=== PATIENT | male | born 1950 | race Caucasian/White ===

== ENCOUNTER 2016-11-25 16:27 | Emergency (ER) | payer OTHER, MEDICARE ==
[2016-11-25 17:48] VITALS: BP 146/72
--- NOTE | 2016-11-25 18:37 | UC ---
Throat Pain/Nasal Miguelangel HPI - HPI Summary HPI Summary: FIVE DAYS OF COUGH SORE THROAT POST NASAL DRIP LOW GRADE FEVER 99.4F - History of Current Complaint Chief Complaint: UCRespiratory Stated Complaint: ST, COUGH Time Seen by Provider: 11/25/16 17:30 Hx Obtained From: Patient Onset/Duration: Gradual Onset, Lasting Weeks, Still Present Severity: Mild Pain Intensity: 0 Pain Scale Used: 0-10 Numeric Cough: Nonproductive Associated Signs & Symptoms: Positive: Sinus Discomfort, Nasal Discharge, Fever - Epiglottits Risk Factors Epiglottis Risk Factors: Negative - Allergies/Home Medications Allergies/Adverse Reactions: Allergies Allergy/AdvReac Type Severity Reaction Status Date / Time No Known Allergies Allergy Verified 11/25/16 17:31 PMH/Surg Hx/FS Hx/Imm Hx Previously Healthy: Yes Endocrine History Of: Denies: Diabetes - BOARDERLINE TYPE 2, Thyroid Disease Cardiovascular History Of: Denies: Cardiac Disorders, Hypertension, Pacemaker/ICD Respiratory History Of: Denies: COPD, Asthma GI/ History Of: Denies: Ulcer - Surgical History Surgical History: Yes Surgery Procedure, Year, and Place: Tonsilectomy. 2004 LEFT TKR and 2007-RIGHT TKR. bilateral carpal tunnel. trigger finger release bilateral - Family History Known Family History: Positive: Respiratory Disease - Social History Occupation: Retired Lives: With Family Alcohol Use: None Substance Use Type: None Smoking Status (MU): Former Smoker Type: Cigarettes Length of Time of Smoking/Using Tobacco: 20 years Have You Smoked in the Last Year: No When Did the Patient Quit Smoking/Using Tobacco: 1994 - Immunization History Most Recent Influenza Vaccination: 2012 Most Recent Tetanus Shot: 2006 Most Recent Pneumonia Vaccination: never Review of Systems Constitutional: Negative Skin: Negative Eyes: Negative ENT: Nasal Discharge Respiratory: Cough Cardiovascular: Negative Gastrointestinal: Negative Genitourinary: Negative Motor: Negative Neurovascular: Negative Musculoskeletal: Negative Neurological: Negative Psychological: Negative All Other Systems Reviewed And Are Negative: Yes Physical Exam Triage Information Reviewed: Yes Appearance: Well-Appearing, No Pain Distress, Well-Nourished Vital Signs: Initial Vital Signs Temp 99.4 F 11/25/16 17:46 Pulse 68 11/25/16 17:46 Resp 12 11/25/16 17:46 BP 146/72 11/25/16 17:46 Pulse Ox 96 02/15/17 17:46 Vital Signs Reviewed: Yes Eye Exam: Normal Eyes: Positive: Conjunctiva Clear ENT: Positive: Hearing grossly normal, Pharynx normal, TM bulging, TM dull Dental Exam: Normal Neck exam: Normal Respiratory Exam: Normal Respiratory: Positive: Chest non-tender, Lungs clear, Normal breath sounds, No respiratory distress, No accessory muscle use Cardiovascular Exam: Normal Cardiovascular: Positive: RRR, No Murmur, Pulses Normal, Brisk Capillary Refill Abdominal Exam: Normal Abdomen Description: Positive: Nontender, No Organomegaly Musculoskeletal Exam: Normal Neurological Exam: Normal Psychological Exam: Normal Psychological: Positive: Normal Response To Family Skin Exam: Normal Throat Pain/Nasal Course/Dx - Differential Dx/Diagnosis Differential Diagnosis/HQI/PQRI: Pharyngitis, Sinusitis, URI Provider Diagnoses: SINUSITIS Discharge - Discharge Plan Condition: Stable Disposition: HOME Prescriptions: Amoxicillin/Clavulanate TAB* [Augmentin TAB 875*] 875 mg PO BID #20 tab Benzonatate CAP* [Tessalon CAP*] 100 mg PO TID PRN #15 cap PRN Reason: Cough Patient Education Materials: Sinusitis (ED) [place]errals: [facility] [place] [facility] [place] [facility] [place]] No Primary Care Phys,NOPCP [Primary Care Provider] -
== END 2016-11-25 18:05 | disposition home or self-care (01) ==
LOC: UCEAST 16:27
DX: J32.9 Chronic sinusitis, unspecified (principal); R03.0 Elevated blood-pressure reading, without diagnosis of hypertension; Z87.891 Personal history of nicotine dependence
CPT/HCPCS: 99212; G0463

== ENCOUNTER 2019-03-08 16:11 | Emergency (ER) | payer MEDICARE, OTHER ==
[2019-03-08 16:46] VITALS: BP 124/68
--- NOTE | 2019-03-08 17:08 | UC ---
Throat Pain/Nasal Miguelangel HPI - HPI Summary HPI Summary: 68 yo male presents with sinus pain/pressure/congestion and eyes "burning" for the last 2 days. He states that he took care of his grandchildren a few days ago and think he picked up a "sinus infection" from them. He has not been taking anything OTC. Denies fever, chills, sore throat, cough. - History of Current Complaint Chief Complaint: UCRespiratory Stated Complaint: SINUS COMPLAINT Time Seen by Provider: 03/08/19 17:08 Hx Obtained From: Patient Severity: Mild Pain Intensity: 3 Pain Scale Used: 0-10 Numeric - Allergies/Home Medications Allergies/Adverse Reactions: Allergies Allergy/AdvReac Type Severity Reaction Status Date / Time No Known Allergies Allergy Verified 03/08/19 16:46 Home Medications: Home Medications Diurectic For Menierre's* 03/08/19 [History] Ibuprofen TAB* [Advil TAB*] 600 mg PO ONCE PRN 03/08/19 [History Confirmed 03/08] metFORMIN* [Glucophage 1000 MG TAB *] 1,000 mg PO DAILY 03/08/19 [History Confirmed 03/08/19] PMH/Surg Hx/FS Hx/Imm Hx Endocrine History: Diabetes, Dyslipidemia Cardiovascular History: Hypertension Psychological History: Anxiety, Depression - Surgical History Surgical History: Yes Surgery Procedure, Year, and Place: Tonsilectomy. 2004 LEFT TKR and 2007-RIGHT TKR. bilateral carpal tunnel. trigger finger release bilateral - Family History Known Family History: Positive: Respiratory Disease - Social History Occupation: Employed Full-time Lives: With Family Alcohol Use: Rare Substance Use Type: Marijuana Smoking Status (MU): Former Smoker Type: Cigarettes Length of Time of Smoking/Using Tobacco: 20 years Have You Smoked in the Last Year: No When Did the Patient Quit Smoking/Using Tobacco: 1994 - Immunization History Most Recent Influenza Vaccination: 2012 Most Recent Tetanus Shot: 2006 Most Recent Pneumonia Vaccination: never Review of Systems All Other Systems Reviewed And Are Negative: Yes Constitutional: Positive: Negative Skin: Positive: Negative Eyes: Positive: Negative ENT: Positive: Nasal Discharge, Sinus Congestion, Sinus Pain/Tenderness Respiratory: Positive: Negative Cardiovascular: Positive: Negative Gastrointestinal: Positive: Negative Neurovascular: Positive: Negative Neurological: Positive: Negative Psychological: Positive: Negative Physical Exam - Summary Physical Exam Summary: GENERAL: NAD. WDWN. No pain distress. SKIN: No rashes, sores, lesions, or open wounds. HEENT: Head: AT/NC Eyes: EOM intact. Conjunctiva clear without inflammation or discharge. Ears: Hearing grossly normal. TMs intact, no bulging, erythema, or edema. Nose: Nasal mucosa pink and moist. NTTP maxillary and frontal sinus. Throat: Posterior oropharynx without exudates, erythema, or tonsillar enlargement. Uvula midline. NECK: Supple. Nontender. No lymphadenopathy. CHEST: CTAB. No r/r/w. No accessory muscle use. Breathing comfortably and in no distress. CV: RRR. Without m/r/g. Pulses intact. Cap refill <2seconds NEURO: Alert. PSYCH: Age appropriate behavior. Triage Information Reviewed: Yes Vital Signs: Initial Vital Signs Temp 97.9 F 03/08/19 16:41 Pulse 77 03/08/19 16:41 Resp 18 03/08/19 16:41 BP 124/68 03/08/19 16:41 Pulse Ox 98 03/08/19 16:41 Vital Signs Reviewed: Yes Throat Pain/Nasal Course/Dx - Course Course Of Treatment: Suspect viral cold/rhinosinusitis Discussed viral vs bacterial and pt prefers to be on anbx at this time. - Differential Dx/Diagnosis Provider Diagnosis: Sinusitis Discharge - Sign-Out/Discharge Documenting (check all that apply): Patient Departure All imaging exams completed and their final reports reviewed: No Studies - Discharge Plan Condition: Stable Disposition: HOME Prescriptions: Amoxicillin PO (*) [Amoxicillin 500 MG CAP*] 500 mg PO Q12H #14 cap Fluticasone NASAL SPRAY 50MCG* [Flonase NASAL SPRAY 50MCG*] 2 spray BOTH NARES DAILY #1 btl Patient Education Materials: Sinusitis (ED) Referrals: Vaishali NEIL,Nandini Rollins [Primary Care Provider] - Additional Instructions: If you develop a fever, shortness of breath, chest pain, new or worsening symptoms - please call your PCP or go to the ED immediately. - Billing Disposition and Condition Condition: STABLE Disposition: Home
== END 2019-03-08 17:30 | disposition home or self-care (01) ==
LOC: UCEAST 16:11
DX: J32.9 Chronic sinusitis, unspecified (principal); F41.9 Anxiety disorder, unspecified; F32.9 Major depressive disorder, single episode, unspecified; Z87.891 Personal history of nicotine dependence
CPT/HCPCS: 99212; G0463

== ENCOUNTER 2019-04-17 08:51 | Emergency (ER) | payer MEDICARE ==
--- NOTE | 2019-04-17 09:18 | ED ---
Head Injury - HPI Summary HPI Summary: Patient is a 68-year-old male with a history of hypercholesterolemia, type 2 diabetes presenting to the ED after head injury this morning. Patient states he was having a nightmare when his heard a "crash" and found him on the floor. The nightstand near the bed was moved approximately 2 feet and was in a different position. Patient states he does recall falling out of bed during his nightmare, hitting the left side of his head, hurting his right knee as well as his right index finger. He denies any pain at this time to his right knee or right index finger and has full range of motion to both. His concerned due to him answering questions this morning more slowly, however patient remains alert and oriented. Denies any confusion, memory loss, headache. He states when he awoke this morning and went to his computer, he felt he may have had some visual changes in terms of blurry vision, but denies this currently. He does take an aspirin daily, 1000 mg metformin, Lexapro and Lipitor. - History Of Current Complaint Chief Complaint: EDHeadInjury Stated Complaint: HEAD INJ FROM FALL PER PT Time Seen by Provider: 04/17/19 09:00 Hx Obtained From: Patient Mechanism Of Injury: Direct Blow Onset/Duration: Started Hours Ago Onset of Pain: Hours Severity Currently: Mild Severity Initially: Mild Pain Intensity: 4 Pain Scale Used: 0-10 Numeric Location of Head Injury: Parietal Location: Discrete At: - left side Associated Signs And Symptoms: Other: - No evidence of confusion, memory loss, LOC, headache, visual changes, nausea, vomiting Anticoagulant Therapy: ASA - Risk Factors SDH Risk Factor: Male - Allergies/Home Medications Allergies/Adverse Reactions: Allergies Allergy/AdvReac Type Severity Reaction Status Date / Time No Known Allergies Allergy Verified 04/17/19 08:56 PMH/Surg Hx/FS Hx/Imm Hx Previously Healthy: Yes Endocrine/Hematology History: Reports: Hx Diabetes Denies: Hx Thyroid Disease Cardiovascular History: Reports: Other Cardiovascular Problems/Disorders - HYPERCHOLESTEMIA Denies: Hx Hypertension, Hx Pacemaker/ICD Respiratory History: Denies: Hx Asthma, Hx Chronic Obstructive Pulmonary Disease (COPD) GI History: Denies: Hx Ulcer Musculoskeletal History: Reports: Other Musculoskeletal History - bilateral knee replacement Sensory History: Reports: Hx Contacts or Glasses Denies: Hx Hearing Aid Opthamlomology History: Reports: Hx Contacts or Glasses Psychiatric History: Denies: Hx Panic Disorder - Surgical History Surgery Procedure, Year, and Place: Tonsilectomy. 2004 LEFT TKR and 2008-RIGHT TKR. bilateral carpal tunnel. trigger finger release bilateral Hx Anesthesia Reactions: No - Immunization History Hx Pertussis Vaccination: No Immunizations Up to Date: Yes Infectious Disease History: No Infectious Disease History: Denies: Hx Clostridium Difficile, Hx Hepatitis, Hx Human Immunodeficiency Virus (HIV), Hx of Known/Suspected MRSA, Hx Shingles, Hx Tuberculosis, Hx Known/ Suspected VRE, Hx Known/Suspected VRSA, History Other Infectious Disease, Traveled Outside the [place] in Last 30 Days - Family History Known Family History: Positive: Respiratory Disease - Social History Occupation: Unemployed Lives: With Family Alcohol Use: Rare Hx Substance Use: Yes Substance Use Type: Reports: Marijuana Substance Use Comment - Amount & Last Used: rare Hx Tobacco Use: Yes Smoking Status (MU): Former Smoker Type: Cigarettes Length of Time of Smoking/Using Tobacco: 20 years Have You Smoked in the Last Year: No Review of Systems Constitutional: Negative Negative: Fever, Chills, Fatigue, Skin Diaphoresis Negative: Palpitations, Chest Pain Negative: Shortness Of Breath, Cough Positive: no symptoms reported, see HPI Negative: Arthralgia, Myalgia Positive: Other - left-sided cephalohematoma Neurological: Negative Negative: Headache, Weakness, Paresthesia, Numbness, Syncope, Slurred Speech All Other Systems Reviewed And Are Negative: Yes Physical Exam Triage Information Reviewed: Yes Vital Signs On Initial Exam: Initial Vitals Temp Pulse Resp BP Pulse Ox 95.8 F 64 17 136/94 97 04/17/19 08:53 04/17/19 08:53 04/17/19 08:53 04/17/19 08:53 04/17/19 08:53 Vital Signs Reviewed: Yes Appearance: Positive: Well-Appearing, Well-Nourished Skin: Positive: Warm, Skin Color Reflects Adequate Perfusion Head/Face: Positive: Cephalohematoma - Left-sided parietal scalp Eyes: Positive: Normal, PEDRO, Conjunctiva Clear Neck: Positive: Supple, Nontender, No Lymphadenopathy, Other: - No tenderness to the posterior cervical spine, range of motion, flexion and extension as well as rotation intact Respiratory/Lung Sounds: Positive: Clear to Auscultation, Breath Sounds Present Cardiovascular: Positive: RRR, Pulses are Symmetrical in both Upper and Lower Extremities Musculoskeletal: Positive: Normal, Strength/ROM Intact Neurological: Positive: Sensory/Motor Intact, Alert, Oriented to Person Place, Time, Normal Gait, Speech Normal. Negative: Disoriented Psychiatric: Positive: Normal, Affect/Mood Appropriate AVPU Assessment: Alert - [place] Coma Scale Best Eye Response: 4 - Spontaneous Best Motor Response: 6 - Obeys Commands Best Verbal Response: 5 - Oriented Coma Scale Total: 15 Diagnostics - Vital Signs Vital Signs Temp Pulse Resp BP Pulse Ox 04/17/19 08:53 95.8 F 64 17 136/94 97 - Laboratory Lab Statement: Any lab studies that have been ordered have been reviewed, and results considered in the medical decision making process. Head Injury Course/Dx Course Of Treatment: Patient arrives with a concern for left-sided head injury. Patient is acting appropriately per . However, prior to arrival he was answering questions slowly, although he remained alert and oriented. He is alert and oriented 3 on arrival, acting appropriately, answering questions appropriately and denies any confusion, memory loss of visual disturbances or headache at this time. There is a small left-sided cephalohematoma to the left portion of the parietal scalp. He is endorsing pain to this area, mild at 2/ 10. 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 CT brain negative. Patient states he is okay for discharge at this time. He denies any other concerns or complaints. He is given brain rest and strict return precautions for likely mild concussive symptoms. - Diagnoses Differential Diagnosis/HQI/PQRI: Concussion With LOC, Concussion Without LOC, Contusion Provider Diagnoses: Head injury Discharge - Sign-Out/Discharge Documenting (check all that apply): Patient Departure Patient Received Moderate/Deep Sedation with Procedure: No - Discharge Plan Condition: Stable Disposition: HOME Prescriptions: Meclizine TAB* [Antivert 12.5 TAB*] 12.5 mg PO TID PRN #12 tab MDD 3 PRN Reason: Dizziness Patient Education Materials: Concussion (ED) Referrals: Vaishali NEIL,Nandini Rollins [Primary Care Provider] - Additional Instructions: No evidence of any intracranial abnormality Concussive like symptoms may be best controlled with brain rest - Billing Disposition and Condition Condition: STABLE Disposition: Home
[2019-04-17 10:40] VITALS: BP 130/74
== END 2019-04-17 10:39 | disposition home or self-care (01) ==
LOC: ED 08:51
DX: S09.90XA Unspecified injury of head, initial encounter (principal); W06.XXXA Fall from bed, initial encounter; Y92.9 Unspecified place or not applicable; E78.00 Pure hypercholesterolemia, unspecified; E11.9 Type 2 diabetes mellitus without complications; Z87.891 Personal history of nicotine dependence; Z79.82 Long term (current) use of aspirin; Z96.653 Presence of artificial knee joint, bilateral
CPT/HCPCS: 70450; 99282

== ENCOUNTER 2019-10-14 14:46 | Emergency (ER) | payer MEDICARE ==
--- OUTSIDE RECORDS SUMMARY | 2019-10-14 14:53 | XMS REPORT | Continuity of Care Document ---
:1950 External Reference #:[id number] Author Name Cesario Leahy N.Glen (transmitted by agent of provider Jennifer Matamoros) [address] [place] [address] Care Team Providers Name Role Phone Nandini Tom PA-C - Physician Care Team Information Layer Out Plate Glass [phone] District Loss Prevention Manager Problems Description No Information Available Social History Type Date Description Comments Sex Unknown Tobacco Use Start: Unknown End: Former Cigarette Smoker Unknown Smoking Status Reviewed: 09/29/19 Former Cigarette Smoker ETOH Use Occasionally consumes alcohol Tobacco Use Start: Unknown End: Patient is a former smoker Unknown Recreational Drug Use Current Drug User Exercise Type/Frequency Exercises regularly Allergies, Adverse Reactions, Alerts Description No Known Drug Allergies Medications Active Medications SIG Qnty Indications Ordering Provider Date Metformin HCL take one tablet Unknown 1000mg by mouth Tablets Lexapro 1 by mouth every Unknown 10mg Tablets day Aspirin Adult Low Dose 1 by mouth every Unknown 81mg day Tablets DR Lisinopril Take 1 Tablet By Unknown 10mg Tablets Mouth Every Day Atorvastatin Calcium Take 1 Tablet By Unknown 10mg Mouth Every Day Tablets Immunizations Description No Information Available Vital Signs Date Vital Result Comment 09/29/2019 1:18pm Height 69 inches 5'9" Weight 250.00 lb Heart Rate 62 /min BP Systolic 134 mmHg BP Diastolic 86 mmHg BMI (Body Mass Index) 36.9 kg/m2 Results Description No Information Available Procedures Description No Information Available Medical Devices Description No Information Available Encounters Description No Information Available Assessments Date Code Description Provider 09/29/2019 R41.3 Other amnesia Cesario Leahy, N.P. 09/29/2019 H81.09 Meniere's disease, unspecified ear Cesario Leahy, N.P. 09/29/2019 E11.9 Type 2 diabetes mellitus without Cesario Leahy, N.P. complications 09/29/2019 R06.83 Snoring Cesario Leahy N.P. Plan of Treatment Future Appointment(s):11/06/2019 8:15 am - Genaro Davis M.D. at [facility]09/29/2019 - Cesario Leahy N.P.R41.3 Other amnesiaNew Xrays:MRI Brain W/O, Ordered: 09/29/19Follow up:6-[address] DavisRecommendations:KINGS lab work from PCP office and last MRI [id number] Meniere's disease, unspecified earE11.9 Type 2 diabetes mellitus without [id number] SnoringNew Orders:Sleep Study, Ordered: 09/29/19 Functional Status Description No Information Available Mental Status Description No Information Available Referrals Description No Information Available
[2019-10-14 14:57] VITALS: BP 161/78
--- NOTE | 2019-10-14 15:21 | UC ---
Throat Pain/Nasal Miguelangel HPI - HPI Summary HPI Summary: patient has had nasal congestion and ST for 4 days, yesterday nasal congestion became worse and now R ear painful took ibuprofen with little relief - History of Current Complaint Chief Complaint: UCRespiratory Stated Complaint: SORE THROAT, EAR ACHE Time Seen by Provider: 10/14/19 14:59 Hx Obtained From: Patient Onset/Duration: Gradual Onset Severity: Moderate Pain Intensity: 4 Cough: None Associated Signs & Symptoms: Positive: Sinus Discomfort - Allergies/Home Medications Allergies/Adverse Reactions: Allergies Allergy/AdvReac Type Severity Reaction Status Date / Time No Known Allergies Allergy Verified 10/14/19 14:57 PMH/Surg Hx/FS Hx/Imm Hx Previously Healthy: Yes Endocrine History: Diabetes, Dyslipidemia Neurological History: Other - meniere's disease Psychological History: Depression - Surgical History Surgical History: Yes Surgery Procedure, Year, and Place: Tonsilectomy. 2003 LEFT TKR and 2007-RIGHT TKR. bilateral carpal tunnel. trigger finger release bilateral - Family History Known Family History: Positive: Respiratory Disease - Social History Occupation: Works From/At Home Lives: With Family Alcohol Use: Rare Substance Use Type: Marijuana Substance Use Comment - Amount & Last Used: rare Smoking Status (MU): Former Smoker Type: Cigarettes Length of Time of Smoking/Using Tobacco: 20 years Have You Smoked in the Last Year: No When Did the Patient Quit Smoking/Using Tobacco: 1994 - Immunization History Most Recent Influenza Vaccination: 2012 Most Recent Tetanus Shot: 2006 Most Recent Pneumonia Vaccination: never Review of Systems All Other Systems Reviewed And Are Negative: Yes Constitutional: Positive: Fatigue Skin: Positive: Negative. Negative: Rash Eyes: Positive: Negative ENT: Positive: Sore Throat, Ear Ache - R, Sinus Congestion, Sinus Pain/ Tenderness Respiratory: Positive: Negative Cardiovascular: Positive: Negative Gastrointestinal: Positive: Negative. Negative: Vomiting, Nausea Neurological: Positive: Headache - across forehead Psychological: Positive: Negative Is Patient Immunocompromised?: No Physical Exam Triage Information Reviewed: Yes Appearance: Well-Appearing, No Pain Distress, Well-Nourished Vital Signs: Initial Vital Signs Temp 97.3 F 10/14/19 14:55 Pulse 62 10/14/19 14:55 Resp 18 10/14/19 14:55 BP 161/78 10/14/19 14:55 Pulse Ox 100 10/14/19 14:55 Vital Signs Reviewed: Yes Eyes: Positive: Conjunctiva Clear ENT: Positive: Pharynx normal - except for white PND, Nasal congestion, TM dull , TM red - R side, Sinus tenderness Neck exam: Normal Neck: Positive: Supple, Nontender, No Lymphadenopathy Respiratory Exam: Normal Respiratory: Positive: Lungs clear Cardiovascular Exam: Normal Cardiovascular: Positive: RRR Neurological Exam: Normal Psychological Exam: Normal Skin Exam: Normal Throat Pain/Nasal Course/Dx - Differential Dx/Diagnosis Differential Diagnosis/HQI/PQRI: Otitis Media, Pharyngitis, Sinusitis, Tonsillitis, URI Provider Diagnosis: Sinusitis, Otitis media Discharge ED - Sign-Out/Discharge Documenting (check all that apply): Patient Departure All imaging exams completed and their final reports reviewed: No Studies - Discharge Plan Condition: Good Disposition: HOME Prescriptions: Amoxicillin/Clavulanate TAB* [Augmentin TAB 875*] 875 mg PO BID #20 tab Patient Education Materials: Sinusitis (ED), Ear Infection (ED) Referrals: Vaishali NEIL,Nandini Rollins [Primary Care Provider] - 3 Days (if no improvement and to recheck blood pressure) Additional Instructions: drink plenty of fluids and rest start antibiotic and take as directed use ibuprofen 600mg every 6 hours as needed for pain and fever - Billing Disposition and Condition Condition: GOOD Disposition: Home
== END 2019-10-14 15:42 | disposition home or self-care (01) ==
LOC: UCEAST 14:46
DX: J32.9 Chronic sinusitis, unspecified (principal); H66.91 Otitis media, unspecified, right ear; E11.9 Type 2 diabetes mellitus without complications; H81.09 Meniere's disease, unspecified ear; Z87.891 Personal history of nicotine dependence
CPT/HCPCS: 99212; G0463